=== PATIENT | male | born 1975 | race Caucasian/White ===

== ENCOUNTER → 2017-04-30 14:01 | Outpatient (CLI) | payer BC, SELFPAY ==
--- NOTE | 2017-04-30 14:04 | RAD_ITS ---
STUDY: X-RAY - RIGHT KNEE REASON FOR EXAM: Male, 41 years old. Pain after fall TECHNIQUE: Four view(s) of the knee were obtained. COMPARISON: None. FINDINGS: The distal femur is unremarkable. The proximal tibia is unremarkable. Normal medial femorotibial compartment. Normal lateral femorotibial compartment. Normal patellofemoral articulation. There is no fullness above the patella. The soft tissue structures are unremarkable. RAD/Knee 4 or More Views IMPRESSION: No acute abnormalities are seen in the right knee. Electronically Signed: Karie Tobar MD at 1:53 EST Tel Direct: [phone], Service support ,
== END ==
PROVIDERS: Visit Provider Orthopaedic Surgery
DX: M25.561 Pain in right knee (principal)
CPT/HCPCS: 73564

== ENCOUNTER 2019-01-21 20:43 | Emergency (ER) | payer BC, SELFPAY ==
[2019-01-21 20:44] VITALS: BP 133/93; PULSE 105; RESP 15; TEMP 37.1; O2SAT 100; BMI 25.6
[2019-01-21 20:49] VITALS: BP 133/93; PULSE 108; RESP 16; O2SAT 100
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
[2019-01-21] MEDS: LORazepam 2 MG/ML Syringe 0.5 MG IV (21:13)
[2019-01-21 21:18] LABS: Absolute Neutrophil Count 4.7 X10^3/uL (2.0-7.7); Basophil# 0.06 X10^3/uL; Basophil% 0.8 % (0-1); Eosinophil# 0.08 X10^3/uL; Hematocrit 43.6 % (40-54); Hemoglobin 14.5 g/dL (13.0-16.5); Lymphocyte % 28.2 % (19-41); Mean Corp Hgb Conc 33.3 g/dL (32-36); Mean Corpuscular Hgb 30.7 pg (27.0-32.0); Mean Corpuscular Volume 92.4 fL (80-94); Mean Platelet Vol. 9.9 fl (6.2-12.0); Monocyte# 0.74 X10^3/uL; Monocyte% 9.5 % (0-10); NRBC Flagged by Analyzer 0 % (0-5); Neutrophil # 4.67 X10^3/uL (2.7-7.7); Platelet Count 272 K/mm3 (150-450); RBC Distribution Width CV 12.7 % (11.6-14.6); RBC Distribution Width SD 43.4 fl (35.1-43.9); Red Blood Count 4.72 M/mm3 (4.6-6.2); White Blood Count 7.8 K/mm3 (4.4-11.0)
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
[2019-01-21 21:37] LABS: AST(SGOT) 44 U/L (15-37); Alanine Aminotransfer ALT/SGPT 43 U/L (16-61); Alkaline Phosphatase 69 U/L (45-117); Anion Gap 10 (5-15); BUN 18 mg/dL (7-18); BUN/Creat Ratio 17.8 RATIO (10-20); Calcium,Total 8.8 mg/dL (8.5-10.1); Chloride 112 mmol/L (98-107); Creatinine, Serum 1.01 mg/dL (0.70-1.30); EST Glomerular Filtration Rate 85 mL/min (>60); Est Glom Filt Rate - Afr Amer 103 mL/min (>60); Estimated Creatinine Clearance 98.37 ml/min; Glucose 103 mg/dL (74-106); Potassium 3.4 mmol/L (3.5-5.1); Sodium Level 146 mmol/L (136-145)
[2019-01-21] MEDS: Ondansetron 4 MG/2 ML Vial IV (21:42)
[2019-01-21] MEDS: Diphth,Pertuss(Acell),Tet Vac 0.5 ML Vial IM (21:51)
[2019-01-21 21:52] VITALS: BP 130/94; PULSE 90; RESP 15; O2SAT 99
[2019-01-21 21:54] VITALS: BP 135/85; PULSE 105; RESP 15; TEMP 36.8; O2SAT 98
== END 2019-01-21 22:07 | disposition home or self-care (01) ==
LOC: ED 21:27
PROVIDERS: Emergency Provider Emergency Medicine
DX: S06.0X9A Concussion with loss of consciousness of unspecified duration, initial encounter (principal); S01.01XA Laceration without foreign body of scalp, initial encounter; S01.311A Laceration without foreign body of right ear, initial encounter; R40.2410 Glasgow coma scale score 13-15, unspecified time; V86.55XA Driver of 3- or 4- wheeled all-terrain vehicle (ATV) injured in nontraffic accident, initial encounter; Y93.9 Activity, unspecified; Y92.9 Unspecified place or not applicable; Z23 Encounter for immunization; F10.129 Alcohol abuse with intoxication, unspecified; Y90.9 Presence of alcohol in blood, level not specified
CPT/HCPCS: 70450; 71045; 72125; 72170; 80053; 80320; 85025; 90715; 96374; 96375; 99285; J7030; A4216; G0480; J2405